=== PATIENT | male | born 1985 | race Native Hawaiian/Other Pacific Islander ===

== ENCOUNTER 2020-08-23 17:00 | Inpatient (IN) | payer SELFPAY ==
[2020-08-23] MEDS ORDERED: MORPHINE 2 MG/1 ML INJ IV ONE (17:33)
[2020-08-23] MEDS ORDERED: SODIUM CHLORIDE 0.9% 1000 ML 1,000 ML IV ONE (17:33)
[2020-08-23] MEDS ORDERED: ONDANSETRON 4 MG/2 ML INJ IV ONE ×2 (17:33→19:57)
--- NOTE | 2020-08-23 17:37 | Emergency Department Report ---
ED Abdominal Pain HPI - General Chief Complaint: Abdominal Pain Stated Complaint: ABD PAIN/UPPER ABD PAIN Time Seen by Provider: 08/23/20 17:28 Source: patient, EMS Mode of arrival: Stretcher Limitations: No Limitations - History of Present Illness Initial Comments: 34-year-old male, no past medical history, presents to ED with upper abdominal pain x2 hours. Patient reports he was driving in and then had onset of epigastric pain. Patient states he ate around 12 noon. He reports associated vomiting. Denies fever, diarrhea, radiation of pain. Patient denies any history of this in the past. He also denies alcohol use. MD Complaint: abdominal pain -: hour(s) (2) Location: epigastric Radiation: none Migration to: no migration Severity: severe Severity scale (0 -10): 10 Quality: aching Consistency: constant Improves With: nothing Worsens With: nothing Associated Symptoms: nausea, vomiting. denies: diarrhea, fever - Related Data Allergies Allergy/AdvReac Type Severity Reaction Status Date / Time No Known Allergies Allergy Verified 08/23/20 17:21 ED Review of Systems ROS: Stated complaint: ABD PAIN/UPPER ABD PAIN Other details as noted in HPI Comment: All other systems reviewed and negative Constitutional: denies: chills, fever Gastrointestinal: abdominal pain, nausea, vomiting. denies: diarrhea ED Past Medical Hx - Past Medical History Previous Medical History?: No - Surgical History Past Surgical History?: No - Social History Smoking Status: Never Smoker Substance Use Type: None ED Physical Exam - General Limitations: No Limitations General appearance: alert, other (Patient in obvious pain) - Head Head exam: Present: atraumatic, normocephalic - Eye Eye exam: Present: normal appearance, EOMI - ENT ENT exam: Present: mucous membranes moist - Neck Neck exam: Present: normal inspection - Respiratory Respiratory exam: Present: normal lung sounds bilaterally. Absent: respiratory distress - Cardiovascular Cardiovascular Exam: Present: regular rate, normal rhythm - GI/Abdominal GI/Abdominal exam: Present: soft, tenderness (Epigastric). Absent: distended - Extremities Exam Extremities exam: Present: normal inspection - Neurological Exam Neurological exam: Present: alert, oriented X3 - Psychiatric Psychiatric exam: Present: normal affect, normal mood - Skin Skin exam: Present: warm, dry, intact, normal color ED Course Vital Signs 08/23/20 08/23/20 08/23/20 17:24 17:56 18:00 Temperature 97.5 F L Pulse Rate 65 Respiratory 18 18 Rate Blood Pressure 127/82 Blood Pressure 108/67 [Left] O2 Sat by Pulse 95 100 Oximetry 08/23/20 08/23/20 08/23/20 18:30 18:46 19:10 Temperature Pulse Rate Respiratory Rate Blood Pressure 112/88 112/88 112/88 Blood Pressure [Left] O2 Sat by Pulse 97 98 98 Oximetry 08/23/20 08/23/20 08/23/20 20:01 20:16 20:30 Temperature Pulse Rate 67 Respiratory 18 Rate Blood Pressure 120/67 117/90 Blood Pressure 120/67 [Left] O2 Sat by Pulse 98 97 94 Oximetry 08/23/20 08/23/20 08/23/20 21:30 21:45 22:01 Temperature Pulse Rate Respiratory Rate Blood Pressure 114/65 114/65 140/93 Blood Pressure [Left] O2 Sat by Pulse 95 97 96 Oximetry 08/23/20 08/23/20 08/23/20 23:00 23:30 23:45 Temperature Pulse Rate Respiratory Rate Blood Pressure 127/80 144/85 127/80 Blood Pressure [Left] O2 Sat by Pulse 98 97 98 Oximetry 08/24/20 08/24/20 08/24/20 00:00 01:00 02:01 Temperature Pulse Rate Respiratory Rate Blood Pressure 121/71 131/88 123/78 Blood Pressure [Left] O2 Sat by Pulse 98 95 96 Oximetry 08/24/20 08/24/20 08/24/20 03:00 04:00 05:00 Temperature Pulse Rate Respiratory Rate Blood Pressure 125/77 136/87 136/84 Blood Pressure [Left] O2 Sat by Pulse 96 96 96 Oximetry 08/24/20 08/24/20 08/24/20 06:00 07:00 08:01 Temperature Pulse Rate Respiratory Rate Blood Pressure 133/86 134/89 137/89 Blood Pressure [Left] O2 Sat by Pulse 95 95 95 Oximetry 08/24/20 08/24/20 08/24/20 14:14 15:32 16:00 Temperature Pulse Rate 98 H Respiratory 18 18 Rate Blood Pressure 137/89 139/89 Blood Pressure [Left] O2 Sat by Pulse 95 Oximetry 08/24/20 08/24/20 08/24/20 17:00 18:00 20:00 Temperature Pulse Rate 102 H 104 H 107 H Respiratory 19 20 15 Rate Blood Pressure 137/96 135/95 132/88 Blood Pressure [Left] O2 Sat by Pulse 94 94 94 Oximetry 08/24/20 21:01 Temperature Pulse Rate 97 H Respiratory 20 Rate Blood Pressure 132/88 Blood Pressure [Left] O2 Sat by Pulse 94 Oximetry - Consultations Consultation #1: 08/23/20 19:54 Spoke with NICA Miramontes. States order MRCP for tomorrow. Make patient n.p.o. after midnight. Will consult on patient. ED Medical Decision Making - Lab Data Result diagrams: 08/24/20 04:23 08/24/20 04:23 - EKG Data -: EKG Interpreted by Me EKG shows normal: sinus rhythm, axis, intervals, QRS complexes, ST-T waves Rate: bradycardia (rate 55) - EKG Data Interpretation: no acute changes - Radiology Data Radiology results: report reviewed, image reviewed - Medical Decision Making 34-year-old male with acute abdominal pain and vomiting. Labs show findings consistent with acute pancreatitis, CT shows the same. Patient has possible choledocholithiasis, with dilated common bile duct. Spoke with GI, will see patient and obtain MRCP. Due to elevated WBCs, will cover with antibiotics. Patient is feeling much better at this time. Will admit to hospitalist, Dr. Bearden, for further management. - Differential Diagnosis Ruptured viscus, pancreatitis, gallstones, ACS Critical care attestation.: If time is entered above; I have spent that time in minutes in the direct care of this critically ill patient, excluding procedure time. ED Disposition Clinical Impression: Common bile duct dilatation Acute pancreatitis Qualifiers: Pancreatitis type: unspecified pancreatitis type Disposition: OP ADMIT IP TO THIS HOSP Is pt being admited?: Yes Condition: Stable Time of Disposition: 19:55
--- NOTE | 2020-08-23 18:09 | XRay Report ---
ABDOMEN 2 VIEW(S) with PA chest INDICATION / CLINICAL INFORMATION: abd pain. COMPARISON: None available. FINDINGS: Chest: The cardiomediastinal silhouette is unremarkable. The lungs are clear. There is no pleural eff usion. There is no pneumothorax. TUBES / LINES: None. BOWEL GAS PATTERN: No significant abnormality. FREE AIR / EXTRALUMINAL GAS: None seen. ADDITIONAL FINDINGS: No significant additional findings. IMPRESSION: 1. No significant abnormality. Signer Name: Jacqueline Rowell MD Signed: 08/23/2020 6:04 PM Workstation Name: [id number]
[2020-08-23 18:34] LABS: Hematocrit 49.7 % (35.5-45.6); Hemoglobin 17.6 gm/dl (11.8-15.2); INR 0.99 (0.87-1.13); Mean Corpuscular HGB Conc 35 % (32-34); Mean Corpuscular Volume 88 fl (84-94); Platelet Count 260 K/mm3 (140-440); Red Blood Count 5.62 M/mm3 (3.65-5.03); Red Cell Distribution Width 12.7 % (13.2-15.2)
[2020-08-23 18:35] LABS: Partial Thromboplastin Time 25.8 Sec. (24.2-36.6)
[2020-08-23 18:39] LABS: Alanine Aminotransferase 151 units/L (7-56); Albumin 4.8 g/dL (3.9-5); BUN/Creatinine Ratio 15; Bilirubin,Direct 0.9 mg/dL (0-0.2); Blood Urea Nitrogen 12 mg/dL (9-20); Calcium 9.4 mg/dL (8.4-10.2); Hemolysis Index 21
--- NOTE | 2020-08-23 19:37 | Cat Scan Report ---
CT abdomen pelvis w con INDICATION: epigastric pain. TECHNIQUE: All CT scans at this location are performed using the following dose modulation technique: Automated exposure control. Helical slices were obtained through the abdomen and pelvis. Intravenous contrast i s administered. COMPARISON: None available. FINDINGS: Abdomen: There is mild subsegmental atelectasis in the lung bases. Liver, spleen, adrenal glands, and kidneys show no acute abnormality. There is acute pancreatitis. There is peripancreatic fluid and there is fluid along the anterior para renal fascia on the right left. There is a small amount of fluid tracking up adjacent to the spleen. There is no evidence of pancreatic necrosis. The common bile duct is dilated measuring 1 cm. There is no bowel obstruction. There is no free air. The appendix is unremarkable. Pelvis: There is no obstruction or inflammation. There are no abnormal fluid collections. On review of bone windows, no acute osseous abnormalities are seen. IMPRESSION: 1. There is acute pancreatitis. There is inflammatory fluid noted around the pancreas and in along th e anterior pararenal fascia on the right and left small amount tracking up adjacent to the spleen. No walled off fluid collections are seen. No mass lesions are seen. 2. There is dilatation of the common bile duct which measures 1 cm. There is mild central intrahepati c biliary dilatation. Signer Name: Job Delacruz MD Signed: 08/23/2020 7:32 PM Workstation Name: [id number]
[2020-08-23] MEDS ORDERED: PIPERACIL/TAZOBACTA 4.5/NS 100 4.5 GM/100 ML VIAL IV ONE (19:53)
[2020-08-23] MEDS ORDERED: ALBUTEROL 2.5 MG/3 ML NEBU IH PRN (20:41)
[2020-08-23] MEDS ORDERED: HYDROmorphone 1 MG/1 ML INJ IV PRN (20:41)
[2020-08-23] MEDS ORDERED: ONDANSETRON 4 MG/2 ML INJ IV PRN (20:41)
[2020-08-23] MEDS ORDERED: ACETAMINOPHEN 325 MG TAB PO PRN (20:41)
[2020-08-23] MEDS ORDERED: SODIUM CHLORIDE 0.9% 1000 ML 2,000 ML IV ONE (20:43)
--- NOTE | 2020-08-23 20:44 | History and Physical Report ---
History of Present Illness Chief complaint: My stomach hurts History of present illness: 34 YO Female with no PMH presents to ED for evaluation. Patient states that she had experienced abdominal pain over the past 12 hours with persistently worsening symptoms over the past 2 hours. Patient states that pain is 10/10, constant, without exacerbating or alleviating factors, nonradiating, localized to the upper abdomen, associated with nausea, associated with multiple episodes of vomiting. EMS notified and upon arrival the patient was found to be in distress and subsequently transported to [facility] for further care and evaluation of the aforementioned symptoms. Patient seen and evaluated in the emergency department. Lab and imaging studies reviewed. Patient underwent CT scan of the abdomen and pelvis which revealed acute pancreatitis. Front End Specialist consulted in ED. Patient is pending endoscopic intervention. Patient denies fever, chills, chest pain, palpitations, productive cough, skin rash, recent ill contacts, ingestion of food/water from new or different sources, or known exposure to COVID-19. No prior admission for review. No medication listed at time of admission for reconciliation. Beatty's Score:1 at admission Past History Past Medical History: No medical history, other (Reviewed) Past Surgical History: No surgical history, Other (Reviewed) Social history: single Family history: no significant family history Medications and Allergies Allergies Allergy/AdvReac Type Severity Reaction Status Date / Time No Known Allergies Allergy Verified 08/23/20 17:21 Active Meds: Active Medications Acetaminophen (Tylenol) 650 mg PO Q4H PRN PRN Reason: Pain MILD(1-3)/Fever >100.5/MANTILLA Albuterol (Proventil) 2.5 mg IH Q4HRT PRN PRN Reason: Shortness Of Breath Hydromorphone HCl (Dilaudid) 0.5 mg IV Q3H PRN PRN Reason: Pain , Severe (7-10) Sodium Chloride (Nacl 0.9% 1000 Ml) 1,000 mls @ 125 mls/hr IV DIRECT RENE Morphine Sulfate (Morphine) 2 mg IV Q4H PRN PRN Reason: Pain, Moderate (4-6) Ondansetron HCl (Zofran) 4 mg IV Q8H PRN PRN Reason: Nausea And Vomiting Sodium Chloride (Sodium Chloride Flush Syringe 10 Ml) 10 ml IV BID RENE Sodium Chloride (Sodium Chloride Flush Syringe 10 Ml) 10 ml IV PRN PRN PRN Reason: LINE FLUSH Review of Systems Constitutional: no weight loss, no weight gain, no fever, no chills, no fatigue, no malaise, no lethargy Ears, nose, mouth and throat: no ear pain, no ear discharge, no decreased hearing, no nasal discharge Cardiovascular: no chest pain, no orthopnea, no rapid/irregular heart beat, no edema, no syncope Respiratory: no excessive sputum, no shortness of breath, no dyspnea on exertion Gastrointestinal: abdominal pain, nausea, vomiting, no diarrhea, no constipation, no change in bowel habits, no hematochezia, no loss of appetite Genitourinary Male: no hematuria, no flank pain, no nocturia Rectal: no pain, no incontinence, no bleeding Musculoskeletal: no neck pain, no shooting arm pain Integumentary: no rash, no pruritis, no redness, no sores, no wounds, no jaundice Neurological: no head injury, no transient paralysis, no paralysis, no weakness, no numbness, no tingling, no syncope, no tremors Psychiatric: no anxiety, no memory loss, no sleep disturbances, no insomnia, no change in appetite Endocrine: no cold intolerance, no excessive thirst, no polyuria Hematologic/Lymphatic: no easy bruising, no lymphadenopathy Allergic/Immunologic: no urticaria, no persistent infections, no angioedema Exam - Constitutional Vitals: Temp Pulse Resp BP Pulse Ox 97.5 F L 67 18 120/67 98 08/23/20 17:24 08/23/20 20:01 08/23/20 20:01 08/23/20 20:01 08/23/20 20:01 General appearance: Present: mild distress - EENT Eyes: Present: PERRL ENT: hearing intact, clear oral mucosa - Neck Neck: Present: supple, normal ROM - Respiratory Respiratory effort: normal Respiratory: bilateral: CTA - Cardiovascular Heart Sounds: Present: S1 & S2. Absent: rub, click - Extremities Extremities: pulses symmetrical, No edema Peripheral Pulses: within normal limits - Abdominal General gastrointestinal: Present: soft, tender, non-distended, normal bowel sounds Localized gastrointestinal: tender: diffuse Male genitourinary: Present: normal - Integumentary Integumentary: Present: clear, warm, dry - Musculoskeletal Musculoskeletal: gait normal, strength equal bilaterally - Psychiatric Psychiatric: appropriate mood/affect, intact judgment & insight - Neurologic Neurologic: CNII-XII intact, moves all extremities HEART Score - HEART Score Troponin: Troponin T < 0.010 ng/mL (0.00-0.029) 08/23/20 18:02 Results - Labs CBC & Chem 7: 08/23/20 18:02 08/23/20 18:02 Labs: Abnormal lab results 08/23/20 08/23/20 Range/Units 18:02 18:02 WBC 19.3 H (4.5-11.0) K/mm3 RBC 5.62 H (3.65-5.03) M/mm3 Hgb 17.6 H (11.8-15.2) gm/dl Hct 49.7 H (35.5-45.6) % MCHC 35 H (32-34) % RDW 12.7 L (13.2-15.2) % Potassium 3.5 L (3.6-5.0) mmol/L Glucose 165 H (75-100) mg/dL Total Bilirubin 1.60 H (0.1-1.2) mg/dL Direct Bilirubin 0.9 H (0-0.2) mg/dL AST 143 H (5-40) units/L ALT 151 H (7-56) units/L Lipase 2656 H (13-60) units/L Assessment and Plan - Patient Problems (1) Systemic inflammatory response syndrome Current Visit: Yes Status: Acute Plan to address problem: CBC, CMP, IV fluid resuscitation therapy, no source of infection localized at this time. Repeat CBC in a.m. Suspected secondary to acute pancreatitis. (2) Acute pancreatitis Current Visit: Yes Status: Acute Qualifiers: Pancreatitis type: unspecified pancreatitis type Plan to address problem: CBC, CMP, LDH level, IV fluid resuscitation therapy, bowel rest, pain control, gastroenterology team consulted in ED. (3) Common bile duct dilatation Current Visit: Yes Status: Acute Plan to address problem: Gastroenterology team consulted in ED, pending endoscopic evaluation as per GI team. (4) DVT prophylaxis Current Visit: Yes Status: Acute Plan to address problem: SCDs bilateral lower extremities while in bed, patient is ambulatory
[2020-08-23] MEDS ORDERED: SODIUM CHLORIDE 0.9% 1000 ML 1,000 ML ONE (22:31)
[2020-08-23] MEDS ORDERED: PROMETHAZINE 12.5 MG RECT SUPP PR PRN (23:14)
[2020-08-23] MEDS ORDERED: MORPHINE 2 MG/1 ML INJ ONE (23:18)
[2020-08-23] MEDS ORDERED: PROMETHAZINE 12.5 MG RECT SUPP PR ONE (23:19)
[2020-08-23] MEDS: MORPHINE 2 MG/1 ML INJ IV PRN (23:29)
[2020-08-24 05:25] LABS: Hemoglobin 17.1 gm/dl (11.8-15.2); Mean Corpuscular HGB Conc 35 % (32-34); Mean Corpuscular Volume 88 fl (84-94); Platelet Count 270 K/mm3 (140-440); Red Blood Count 5.57 M/mm3 (3.65-5.03); Red Cell Distribution Width 13.1 % (13.2-15.2)
[2020-08-24 05:30] LABS: Alanine Aminotransferase 127 units/L (7-56); Albumin 4.4 g/dL (3.9-5); Blood Urea Nitrogen 9 mg/dL (9-20); Calcium 8.8 mg/dL (8.4-10.2); Hemolysis Index 6
[2020-08-24 05:35] LABS: BUN/Creatinine Ratio 13
[2020-08-24 06:49] LABS: Basophils % (Manual) 0 % (0.0-1.8); Eosinophils % (Manual) 0 % (0.0-4.3); Total Cells Counted 100
[2020-08-24 06:50] LABS: Platelet Estimate Consistent w Auto
--- NOTE | 2020-08-24 09:22 | Magnetic Resonance Report ---
MR abdomen MRCP INDICATION / CLINICAL INFORMATION: dilated CBD; abd pain. TECHNIQUE: Multiplanar, multisequence MR images of the abdomen were obtained per MRCP protocol. COMPARISON: CT abdomen and pelvis with contrast dated 08/23/2020 FINDINGS: Liver: Liver appears within normal limits. Gallbladder: The gallbladder is distended. Multiple large filling defects are noted layering near the gallbladder neck measuring 2.7 cm, 1.1 cm, and 0.7 cm respectively. No evidence of gall bladder wall thickening or pericolic cystic fluid. Biliary ducts: Mild intrahepatic ductal dilatation is noted without evidence of intraluminal filling defects. The cystic duct is minimally tortuous without evidence of intraluminal filling defects. Comm on bile duct is dilated measuring 1.1 cm at its greatest diameter with a distal 0.6 cm filling defect near the ampulla of Vater (series 7 image 19). Pancreas: Findings of acute pancreatitis are relatively unchanged since prior CT. No evidence of panc reatic necrosis. No peripancreatic disorganized free fluid within the peritoneum is similar. No evide nce of pancreatic duct dilatation. Other: No significant abnormality identified within the spleen, kidneys, or adrenal glands. IMPRESSION: 1. Cholelithiasis and choledocholithiasis with a 0.6 cm gallstone located at the ampulla of Vater and associated intra and extrahepatic biliary ductal dilatation. No evidence of gallstones within the cy stic duct or acute cholecystitis. 2. Previously noted findings of acute pancreatitis and disorganized free fluid are unchanged from leanne or exam. Signer Name: Greg Howe MD Signed: 08/24/2020 9:18 AM Workstation Name: [id number]
[2020-08-24] MEDS ORDERED: HYDROmorphone 1 MG/1 ML INJ ONE (14:08)
[2020-08-24] MEDS ORDERED: LORazepam 2 MG/ML VIAL ONE (14:09)
--- NOTE | 2020-08-24 14:58 | Gastroenterology Consultation ---
History of Present Illness - Reason for Consult Consult date: 08/24/20 Gallstones Requesting physician: OBDULIA LEWIS - History of Present Illness The patient is a 34 yo male with no prior GI history, who was admitted with pancreatitis. He has no hx of this, nor hepatitis. A CT saw, and MRCP confirmed, a small stone in the distal CBD. He says the pain in the epigastric region is better after admit, and his labs are improved without fever. There is a family hx of gallstones in his mother. He denies CP or SOB, and has no hx of active cardiopulmonary disease. Past History Past Medical History: No medical history Past Surgical History: No surgical history Social history: single. denies: smoking, alcohol abuse Family history: other (Gallstones, mother) Medications and Allergies Allergies Allergy/AdvReac Type Severity Reaction Status Date / Time No Known Allergies Allergy Verified 08/23/20 17:21 Active Meds: Active Medications Acetaminophen (Tylenol) 650 mg PO Q4H PRN PRN Reason: Pain MILD(1-3)/Fever >100.5/MANTILLA Albuterol (Proventil) 2.5 mg IH Q4HRT PRN PRN Reason: Shortness Of Breath Hydromorphone HCl (Dilaudid) 0.5 mg IV Q3H PRN PRN Reason: Pain , Severe (7-10) Last Admin: 08/24/20 14:14 Dose: 0.5 mg Documented by: Sodium Chloride (Nacl 0.9% 1000 Ml) 1,000 mls @ 125 mls/hr IV DIRECT RENE Morphine Sulfate (Morphine) 2 mg IV Q4H PRN PRN Reason: Pain, Moderate (4-6) Last Admin: 08/23/20 23:29 Dose: 2 mg Documented by: Ondansetron HCl (Zofran) 4 mg IV Q8H PRN PRN Reason: Nausea And Vomiting Promethazine HCl (Phenergan) 12.5 mg IL Q6H PRN PRN Reason: Nausea And Vomiting Last Admin: 08/23/20 23:29 Dose: 12.5 mg Documented by: Sodium Chloride (Sodium Chloride Flush Syringe 10 Ml) 10 ml IV BID RENE Last Admin: 08/24/20 10:21 Dose: 10 ml Documented by: Sodium Chloride (Sodium Chloride Flush Syringe 10 Ml) 10 ml IV PRN PRN PRN Reason: LINE FLUSH REVIEWED AND RECONCILED Review of Systems - Review of Systems All systems: negative (as noted in the HPI.) Exam - Constitutional Vital Signs: Temp Pulse Resp BP Pulse Ox 97.5 F L 67 18 137/89 95 08/23/20 17:24 08/23/20 20:01 08/24/20 14:14 08/24/20 08:01 08/24/20 08:01 General appearance: no acute distress - EENT Eyes: PERRL, EOM intact ENT: hearing intact, clear oral mucosa, no thrush - Neck Neck: supple, normal ROM - Respiratory Respiratory effort: normal Respiratory: bilateral: CTA - Cardiovascular Rhythm: regular Heart Sounds: Present: S1 & S2 Extremities: no ischemia, No edema - Gastrointestinal General gastrointestinal: Present: soft, tender (Minimal epigastric tenderness), non-distended - Integumentary Integumentary: Present: clear, warm, dry - Neurologic Neurological: alert and oriented x3 - Labs CBC & Chem 7: 08/24/20 04:23 08/24/20 04:23 Lab Results: Laboratory Results - last 24 hr 08/23/20 08/23/20 08/23/20 18:02 18:02 18:02 WBC 19.3 H RBC 5.62 H Hgb 17.6 H Hct 49.7 H MCV 88 MCH 31 MCHC 35 H RDW 12.7 L Plt Count 260 Lymph % (Auto) Evaluation Assistant Ware % (Auto) Evaluation Assistant Eos % (Auto) Evaluation Assistant Baso % (Auto) Evaluation Assistant Lymph # (Auto) Evaluation Assistant Ware # (Auto) Evaluation Assistant Eos # (Auto) Evaluation Assistant Baso # (Auto) Evaluation Assistant Add Manual Diff Total Counted Seg Neutrophils % Evaluation Assistant Seg Neuts % (Manual) Band Neutrophils % Lymphocytes % (Manual) Reactive Lymphs % (Man) Monocytes % (Manual) Eosinophils % (Manual) Basophils % (Manual) Metamyelocytes % Myelocytes % Promyelocytes % Blast Cells % Nucleated RBC % Seg Neutrophils # Evaluation Assistant Seg Neutrophils # Man Band Neutrophils # Lymphocytes # (Manual) Abs React Lymphs (Man) Monocytes # (Manual) Eosinophils # (Manual) Basophils # (Manual) Metamyelocytes # Myelocytes # Promyelocytes # Blast Cells # WBC Morphology Hypersegmented Neuts Hyposegmented Neuts Hypogranular Neuts Smudge Cells Toxic Granulation Toxic Vacuolation Dohle Bodies Pelger-Huet Anomaly Giovana Rods Platelet Estimate Clumped Platelets Plt Clumps, EDTA Large Platelets Giant Platelets Platelet Satelliting Plt Morphology Comment RBC Morphology Dimorphic RBCs Polychromasia Hypochromasia Poikilocytosis Anisocytosis Microcytosis Macrocytosis Spherocytes Pappenheimer Bodies Sickle Cells Target Cells Tear Drop Cells Ovalocytes Helmet Cells [place] Bodies [place] Rings Sor[place] Cells Bite Cells Crenated Cell Elliptocytes Acanthocytes (Spur) Rouleaux Hemoglobin C Crystals Schistocytes Malaria parasites Fletcher Bodies Hem Pathologist Commnt PT 13.3 INR 0.99 APTT 25.8 Sodium 140 Potassium 3.5 L Chloride 102.8 Carbon Dioxide 23 Anion Gap 18 BUN 12 Creatinine 0.8 Estimated GFR > 60 BUN/Creatinine Ratio 15 Glucose 165 H Calcium 9.4 Total Bilirubin 1.60 H Direct Bilirubin 0.9 H Indirect Bilirubin 0.7 AST 143 H ALT 151 H Alkaline Phosphatase 123 Lactate Dehydrogenase Troponin T Total Protein 7.9 Albumin 4.8 Albumin/Globulin Ratio 1.5 Lipase 2656 H 08/23/20 08/23/20 08/24/20 18:02 Unknown 04:23 WBC 15.2 H RBC 5.57 H Hgb 17.1 H Hct 49.0 H MCV 88 MCH 31 MCHC 35 H RDW 13.1 L Plt Count 270 Lymph % (Auto) Ware % (Auto) Eos % (Auto) Baso % (Auto) Lymph # (Auto) Ware # (Auto) Eos # (Auto) Baso # (Auto) Add Manual Diff Complete Total Counted 100 Seg Neutrophils % Evaluation Assistant Seg Neuts % (Manual) 91.0 H Band Neutrophils % 0 Lymphocytes % (Manual) 4.0 L Reactive Lymphs % (Man) 0 Monocytes % (Manual) 5.0 Eosinophils % (Manual) 0 Basophils % (Manual) 0 Metamyelocytes % 0 Myelocytes % 0 Promyelocytes % 0 Blast Cells % 0 Nucleated RBC % Not Reportable Seg Neutrophils # Seg Neutrophils # Man 13.8 H Band Neutrophils # 0.0 Lymphocytes # (Manual) 0.6 L Abs React Lymphs (Man) 0.0 Monocytes # (Manual) 0.8 Eosinophils # (Manual) 0.0 Basophils # (Manual) 0.0 Metamyelocytes # 0.0 Myelocytes # 0.0 Promyelocytes # 0.0 Blast Cells # 0.0 WBC Morphology Not Reportable Hypersegmented Neuts Not Reportable Hyposegmented Neuts Not Reportable Hypogranular Neuts Not Reportable Smudge Cells Not Reportable Toxic Granulation Not Reportable Toxic Vacuolation Not Reportable Dohle Bodies Not Reportable Pelger-Huet Anomaly Not Reportable Giovana Rods Not Reportable Platelet Estimate Consistent w auto Clumped Platelets Not Reportable Plt Clumps, EDTA Not Reportable Large Platelets Not Reportable Giant Platelets Not Reportable Platelet Satelliting Not Reportable Plt Morphology Comment Not Reportable RBC Morphology Not Reportable Dimorphic RBCs Not Reportable Polychromasia Not Reportable Hypochromasia Not Reportable Poikilocytosis Not Reportable Anisocytosis Not Reportable Microcytosis Not Reportable Macrocytosis Not Reportable Spherocytes Not Reportable Pappenheimer Bodies Not Reportable Sickle Cells Not Reportable Target Cells Not Reportable Tear Drop Cells Not Reportable Ovalocytes Not Reportable Helmet Cells Not Reportable [place] Bodies Not Reportable [place] Rings Not Reportable [place] Cells Not Reportable Bite Cells Not Reportable Crenated Cell Not Reportable Elliptocytes Not Reportable Acanthocytes (Spur) Not Reportable Rouleaux Not Reportable Hemoglobin C Crystals Not Reportable Schistocytes Not Reportable Malaria parasites Not Reportable Fletcher Bodies Not Reportable Hem Pathologist Commnt No PT INR APTT Sodium Potassium Chloride Carbon Dioxide Anion Gap BUN Creatinine Estimated GFR BUN/Creatinine Ratio Glucose Calcium Total Bilirubin Direct Bilirubin Indirect Bilirubin AST ALT Alkaline Phosphatase Lactate Dehydrogenase 308 H Troponin T < 0.010 Total Protein Albumin Albumin/Globulin Ratio Lipase 08/24/20 08/24/20 04:23 04:23 WBC RBC Hgb Hct MCV MCH MCHC RDW Plt Count Lymph % (Auto) Ware % (Auto) Eos % (Auto) Baso % (Auto) Lymph # (Auto) Ware # (Auto) Eos # (Auto) Baso # (Auto) Add Manual Diff Total Counted Seg Neutrophils % Seg Neuts % (Manual) Band Neutrophils % Lymphocytes % (Manual) Reactive Lymphs % (Man) Monocytes % (Manual) Eosinophils % (Manual) Basophils % (Manual) Metamyelocytes % Myelocytes % Promyelocytes % Blast Cells % Nucleated RBC % Seg Neutrophils # Seg Neutrophils # Man Band Neutrophils # Lymphocytes # (Manual) Abs React Lymphs (Man) Monocytes # (Manual) Eosinophils # (Manual) Basophils # (Manual) Metamyelocytes # Myelocytes # Promyelocytes # Blast Cells # WBC Morphology Hypersegmented Neuts Hyposegmented Neuts Hypogranular Neuts Smudge Cells Toxic Granulation Toxic Vacuolation Dohle Bodies Pelger-Huet Anomaly Giovana Rods Platelet Estimate Clumped Platelets Plt Clumps, EDTA Large Platelets Giant Platelets Platelet Satelliting Plt Morphology Comment RBC Morphology Dimorphic RBCs Polychromasia Hypochromasia Poikilocytosis Anisocytosis Microcytosis Macrocytosis Spherocytes Pappenheimer Bodies Sickle Cells Target Cells Tear Drop Cells Ovalocytes Helmet Cells [place] Bodies [place] Rings [place] Cells Bite Cells Crenated Cell Elliptocytes Acanthocytes (Spur) Rouleaux Hemoglobin C Crystals Schistocytes Malaria parasites Fletcher Bodies Hem Pathologist Commnt PT INR APTT Sodium 141 Potassium 3.7 Chloride 106.8 Carbon Dioxide 23 Anion Gap 15 BUN 9 Creatinine 0.7 L Estimated GFR > 60 BUN/Creatinine Ratio 13 Glucose 203 H Calcium 8.8 Total Bilirubin 1.10 Direct Bilirubin Indirect Bilirubin AST 51 H ALT 127 H Alkaline Phosphatase 106 Lactate Dehydrogenase Troponin T Total Protein 7.3 Albumin 4.4 Albumin/Globulin Ratio 1.5 Lipase 875 H Assessment and Plan - Patient Problems (1) Gallstone pancreatitis Current Visit: Yes Status: Acute Plan to address problem: - WBC and LFTs improved, but MRCP confirms residual small stone(s). - Will plan ERCP tomorrow. - Given elevated WBC, will give abx. - Continue aggressive IV hydration.
--- NOTE | 2020-08-24 20:00 | Progress Note ---
Assessment and Plan - Patient Problems (1) Systemic inflammatory response syndrome Current Visit: Yes Status: Acute Plan to address problem: CBC, CMP, IV fluid resuscitation therapy, no source of infection localized at this time. Repeat CBC in a.m. Suspected secondary to acute pancreatitis. (2) Acute pancreatitis Current Visit: Yes Status: Acute Qualifiers: Pancreatitis type: unspecified pancreatitis type Plan to address problem: CBC, CMP, LDH level, IV fluid resuscitation therapy, bowel rest, pain control, gastroenterology team consulted in ED. (3) Common bile duct dilatation Current Visit: Yes Status: Acute Plan to address problem: Gastroenterology team consulted in ED, pending endoscopic evaluation as per GI team. (4) DVT prophylaxis Current Visit: Yes Status: Acute Plan to address problem: SCDs bilateral lower extremities while in bed, patient is ambulatory History Interval history: 34 YO Female HD #2 with Acute Pancreatitis. Pt resting comfortable in bed, No reported nursing events. Patient resting comfortably. Patient denies pain. Patient states that symptoms have improved since admission. Hospitalist Physical - Constitutional Vitals: Temp Pulse Resp BP Pulse Ox 97.5 F L 102 H 19 137/96 94 08/23/20 17:24 08/24/20 17:00 08/24/20 17:00 08/24/20 17:00 08/24/20 17:00 General appearance: Present: mild distress - EENT Eyes: Present: PERRL, EOM intact ENT: hearing intact - Neck Neck: Present: supple - Respiratory Respiratory effort: normal Respiratory: bilateral: CTA - Cardiovascular Rhythm: regular Heart Sounds: Present: S1 & S2 - Extremities Extremities: no ischemia Peripheral Pulses: within normal limits - Abdominal General gastrointestinal: soft, non-tender, non-distended - Integumentary Integumentary: Present: clear, warm, dry - Psychiatric Psychiatric: appropriate mood/affect, cooperative - Neurologic Neurologic: CNII-XII intact HEART Score - HEART Score Troponin: Troponin T < 0.010 ng/mL (0.00-0.029) 08/23/20 18:02 Results - Labs CBC & Chem 7: 08/24/20 04:23 08/24/20 04:23 Labs: Laboratory Last Values WBC 15.2 K/mm3 (4.5-11.0) H 08/24/20 04:23 RBC 5.57 M/mm3 (3.65-5.03) H 08/24/20 04:23 Hgb 17.1 gm/dl (11.8-15.2) H 08/24/20 04:23 Hct 49.0 % (35.5-45.6) H 08/24/20 04:23 MCV 88 fl (84-94) 08/24/20 04:23 MCH 31 pg (28-32) 08/24/20 04:23 MCHC 35 % (32-34) H 08/24/20 04:23 RDW 13.1 % (13.2-15.2) L 08/24/20 04:23 Plt Count 270 K/mm3 (140-440) 08/24/20 04:23 Lymph % (Auto) Veneer Joiner 08/23/20 18:02 [place] % (Auto) Veneer Joiner 08/23/20 18:02 Eos % (Auto) Veneer Joiner 08/23/20 18:02 Baso % (Auto) Veneer Joiner 08/23/20 18:02 Lymph # (Auto) Veneer Joiner 08/23/20 18:02 [place] # (Auto) Veneer Joiner 08/23/20 18:02 Eos # (Auto) Veneer Joiner 08/23/20 18:02 Baso # (Auto) Veneer Joiner 08/23/20 18:02 Add Manual Diff Complete 08/24/20 04:23 Total Counted 100 08/24/20 04:23 Seg Neutrophils % Veneer Joiner 08/24/20 04:23 Seg Neuts % (Manual) 91.0 % (40.0-70.0) H 08/24/20 04:23 Band Neutrophils % 0 % 08/24/20 04:23 Lymphocytes % (Manual) 4.0 % (13.4-35.0) L 08/24/20 04:23 Reactive Lymphs % (Man) 0 % 08/24/20 04:23 Monocytes % (Manual) 5.0 % (0.0-7.3) 08/24/20 04:23 Eosinophils % (Manual) 0 % (0.0-4.3) 08/24/20 04:23 Basophils % (Manual) 0 % (0.0-1.8) 08/24/20 04:23 Metamyelocytes % 0 % 08/24/20 04:23 Myelocytes % 0 % 08/24/20 04:23 Promyelocytes % 0 % 08/24/20 04:23 Blast Cells % 0 % 08/24/20 04:23 Nucleated RBC % Not Reportable 08/24/20 04:23 Seg Neutrophils # Veneer Joiner 08/23/20 18:02 Seg Neutrophils # Man 13.8 K/mm3 (1.8-7.7) H 08/24/20 04:23 Band Neutrophils # 0.0 K/mm3 08/24/20 04:23 Lymphocytes # (Manual) 0.6 K/mm3 (1.2-5.4) L 08/24/20 04:23 Abs React Lymphs (Man) 0.0 K/mm3 08/24/20 04:23 Monocytes # (Manual) 0.8 K/mm3 (0.0-0.8) 08/24/20 04:23 Eosinophils # (Manual) 0.0 K/mm3 (0.0-0.4) 08/24/20 04:23 Basophils # (Manual) 0.0 K/mm3 (0.0-0.1) 08/24/20 04:23 Metamyelocytes # 0.0 K/mm3 08/24/20 04:23 Myelocytes # 0.0 K/mm3 08/24/20 04:23 Promyelocytes # 0.0 K/mm3 08/24/20 04:23 Blast Cells # 0.0 K/mm3 08/24/20 04:23 WBC Morphology Not Reportable 08/24/20 04:23 Hypersegmented Neuts Not Reportable 08/24/20 04:23 Hyposegmented Neuts Not Reportable 08/24/20 04:23 Hypogranular Neuts Not Reportable 08/24/20 04:23 Smudge Cells Not Reportable 08/24/20 04:23 Toxic Granulation Not Reportable 08/24/20 04:23 Toxic Vacuolation Not Reportable 08/24/20 04:23 Dohle Bodies Not Reportable 08/24/20 04:23 Pelger-Huet Anomaly Not Reportable 08/24/20 04:23 Giovana Rods Not Reportable 08/24/20 04:23 Platelet Estimate Consistent w auto 08/24/20 04:23 Clumped Platelets Not Reportable 08/24/20 04:23 Plt Clumps, EDTA Not Reportable 08/24/20 04:23 Large Platelets Not Reportable 08/24/20 04:23 Giant Platelets Not Reportable 08/24/20 04:23 Platelet Satelliting Not Reportable 08/24/20 04:23 Plt Morphology Comment Not Reportable 08/24/20 04:23 RBC Morphology Not Reportable 08/24/20 04:23 Dimorphic RBCs Not Reportable 08/24/20 04:23 Polychromasia Not Reportable 08/24/20 04:23 Hypochromasia Not Reportable 08/24/20 04:23 Poikilocytosis Not Reportable 08/24/20 04:23 Anisocytosis Not Reportable 08/24/20 04:23 Microcytosis Not Reportable 08/24/20 04:23 Macrocytosis Not Reportable 08/24/20 04:23 Spherocytes Not Reportable 08/24/20 04:23 Pappenheimer Bodies Not Reportable 08/24/20 04:23 Sickle Cells Not Reportable 08/24/20 04:23 Target Cells Not Reportable 08/24/20 04:23 Tear Drop Cells Not Reportable 08/24/20 04:23 Ovalocytes Not Reportable 08/24/20 04:23 Helmet Cells Not Reportable 08/24/20 04:23 [place] Bodies Not Reportable 08/24/20 04:23 [place] Rings Not Reportable 08/24/20 04:23 [place] Cells Not Reportable 08/24/20 04:23 Bite Cells Not Reportable 08/24/20 04:23 Crenated Cell Not Reportable 08/24/20 04:23 Elliptocytes Not Reportable 08/24/20 04:23 Acanthocytes (Spur) Not Reportable 08/24/20 04:23 Rouleaux Not Reportable 08/24/20 04:23 Hemoglobin C Crystals Not Reportable 08/24/20 04:23 Schistocytes Not Reportable 08/24/20 04:23 Malaria parasites Not Reportable 08/24/20 04:23 Fletcher Bodies Not Reportable 08/24/20 04:23 Hem Pathologist Commnt No 08/24/20 04:23 PT 13.3 Sec. (12.2-14.9) 08/23/20 18:02 INR 0.99 (0.87-1.13) 08/23/20 18:02 APTT 25.8 Sec. (24.2-36.6) 08/23/20 18:02 Sodium 141 mmol/L (137-145) 08/24/20 04:23 Potassium 3.7 mmol/L (3.6-5.0) 08/24/20 04:23 Chloride 106.8 mmol/L (98-107) 08/24/20 04:23 Carbon Dioxide 23 mmol/L (22-30) 08/24/20 04:23 Anion Gap 15 mmol/L 08/24/20 04:23 BUN 9 mg/dL (9-20) 08/24/20 04:23 Creatinine 0.7 mg/dL (0.8-1.3) L 08/24/20 04:23 Estimated GFR > 60 ml/min 08/24/20 04:23 BUN/Creatinine Ratio 13 % 08/24/20 04:23 Glucose 203 mg/dL (75-100) H 08/24/20 04:23 Calcium 8.8 mg/dL (8.4-10.2) 08/24/20 04:23 Total Bilirubin 1.10 mg/dL (0.1-1.2) 08/24/20 04:23 Direct Bilirubin 0.9 mg/dL (0-0.2) H 08/23/20 18:02 Indirect Bilirubin 0.7 mg/dL 08/23/20 18:02 AST 51 units/L (5-40) H 08/24/20 04:23 ALT 127 units/L (7-56) H 08/24/20 04:23 Alkaline Phosphatase 106 units/L (35-129) 08/24/20 04:23 Lactate Dehydrogenase 308 units/L (91-180) H 08/23/20 Unknown Troponin T < 0.010 ng/mL (0.00-0.029) 08/23/20 18:02 Total Protein 7.3 g/dL (6.3-8.2) 08/24/20 04:23 Albumin 4.4 g/dL (3.9-5) 08/24/20 04:23 Albumin/Globulin Ratio 1.5 % 08/24/20 04:23 Lipase 875 units/L (13-60) H 08/24/20 04:23 Crow/IV: IV Catheter Type [Right INT / Saline Lock Antecubital] Active Medications - Current Medications Current Medications: Generic Name Dose Route Start Last Admin Trade Name Freq PRN Reason Stop Dose Admin Acetaminophen 650 mg 08/23/20 20:41 Tylenol PO Q4H PRN Pain MILD(1-3)/Fever >100.5/MANTILLA Albuterol 2.5 mg 08/23/20 20:41 Proventil IH Q4HRT PRN Shortness Of Breath Hydromorphone HCl 0.5 mg 08/23/20 20:41 08/24/20 14:14 Dilaudid IV 0.5 mg Q3H PRN Administration Pain , Severe (7-10) Sodium Chloride 1,000 mls @ 125 mls/hr 08/23/20 20:45 Nacl 0.9% 1000 Ml IV DIRECT RENE Morphine Sulfate 2 mg 08/23/20 20:41 08/23/20 23:29 Morphine IV 2 mg Q4H PRN Administration Pain, Moderate (4-6) Ondansetron HCl 4 mg 08/23/20 20:41 Zofran IV Q8H PRN Nausea And Vomiting Promethazine HCl 12.5 mg 08/23/20 23:14 08/23/20 23:29 Phenergan DE 12.5 mg Q6H PRN Administration Nausea And Vomiting Sodium Chloride 10 ml 08/23/20 22:00 08/24/20 10:21 Sodium Chloride Flush Syringe 10 Ml IV 10 ml BID RENE Administration Sodium Chloride 10 ml 08/23/20 20:41 Sodium Chloride Flush Syringe 10 Ml IV PRN PRN LINE FLUSH
[2020-08-25] MEDS ORDERED: SODIUM CHLORIDE 0.9% 1000 ML 1,000 ML ONE ×2 (08:41→12:33)
--- NOTE | 2020-08-25 08:58 | Anesthesia Day of Surgery ---
Anesthesia Day of Surgery - Day of Surgery Patient Examined: Yes Patient H&P Reviewed: Yes Patient is NPO: Yes
--- NOTE | 2020-08-25 08:59 | Anesthesia Consultation ---
Anesthesia Consult and Med Hx Date of service: 08/25/20 - Airway Anesthetic Teeth Evaluation: Good ROM Head & Neck: Adequate Mental/Hyoid Distance: Adequate Mallampati Class: Class III Intubation Access Assessment: Probably Good - Pre-Operative Health Status ASA Pre-Surgery Classification: ASA2 Proposed Anesthetic Plan: General, MAC - Other Systems Hx Alcohol Use: Yes - Additional Comments Anesthesia Medical History Comments: [place] speaking only. Acute pancreatitis with elevated LFTs
[2020-08-25] MEDS: SODIUM CHLORIDE 0.9% 1000 ML 1,000 ML IV SCH ×2 (09:22→15:34)
[2020-08-25] MEDS ORDERED: SODIUM CHLORIDE 0.9% 100 ML ONE (09:57)
[2020-08-25] MEDS ORDERED: MIDAZOLAM 2 MG/2 ML INJ ONE (11:33)
[2020-08-25] MEDS ORDERED: propofoL 200 MG/20 ML VIAL IV ONE (11:33)
[2020-08-25] MEDS ORDERED: fentaNYL 100 MCG/2 ML INJ ONE (11:34)
[2020-08-25] MEDS ORDERED: ONDANSETRON 4 MG/2 ML INJ ONE (12:17)
--- NOTE | 2020-08-25 12:22 | Post Operative Note ---
Pre-op diagnosis: Gallstone Post-op diagnosis: same Findings: Sludge in CBD Procedure: ERCP with biliary sphicterotomy and balloon sweep of CBD Anesthesia: MAC Surgeon: SHAKEEL SHERWOOD Estimated blood loss: minimal Pathology: none Specimen disposition: other (N/A) Condition: stable Disposition: floor (Recs: 1. Surgical consult for cholecystectomy. 2. Protonix QD given sphincterotomy. 3. May have clears today. 4. Monitor labs, but if improved, may d/c abx on discharge. 5. No NSAIDs x 3 days.)
--- NOTE | 2020-08-25 12:38 | Operative Report ---
ENDOSCOPY PROCEDURE PERFORMED: Endoscopic retrograde cholangiopancreatography with biliary sphincterotomy and balloon sweeping of the common bile duct. PREOPERATIVE DIAGNOSIS: Choledocholithiasis. POSTOPERATIVE DIAGNOSIS: Choledocholithiasis. ENDOSCOPIST: Jack Rogers MD INSTRUMENT: Olympus video endoscope. MEDICATIONS: MAC anesthesia by Anesthesia Service. COMPLICATIONS: No apparent complications. ESTIMATED BLOOD LOSS: Minimal. SPECIMENS: None. IMPLANTS: None. ASSISTANTS: None. CONDITION AT COMPLETION: Stable. TECHNIQUE: The patient was informed of the risks and benefits of the procedure. He signed the informed consent to proceed. He was placed in the prone position. The above sedative medications were given. His vital signs remained stable throughout the procedure. The instrument was advanced from the mouth to the ampulla under direct visualization. At that point, the bowel was insufflated. The ampulla was normal in shape and size. We did not cannulate the pancreatic duct. The common bile duct was cannulated using a Fusion sphincterotome and a 0.035 guidewire. Cholangiogram showed minimal dilation to approximately 7 mm with a possible filling defect in the distalmost portion. A medium sized sphincterotomy was performed and a 12-mm balloon was swept twice through the common hepatic and common bile duct. A moderate amount of biliary sludge was removed, but there was no significant remaining gallstone in the common bile duct, presumably this had passed. At that point, the procedure was terminated. FINDINGS: 1. Normal appearing ampulla. 2. Pancreatic duct not cannulated or injected. 3. Note incidentally made of filling of the cystic duct and the gallbladder during the procedure, with gallstones visualized. 4. Common bile duct cannulated using a Fusion sphincterotome and a 0.035 guidewire. A. Common bile duct dilated minimally to 7 mm with distal filling defect. B. Medium sized sphincterotomy performed. C. A 12-mm balloon swept twice through the common hepatic and common bile duct with removal of biliary sludge, moderate amount, but no significant retained stone was noted even on cholangiogram. RECOMMENDATIONS: 1. Surgical consult for cholecystectomy. 2. Protonix daily therapy, given his recent sphincterotomy. 3. The patient may have clears today. 4. Monitor labs, but improved. The patient may discontinue antibiotics on discharge. 5. No nonsteroidal anti-inflammatory drugs for 3 days. JOB# [id number] CHA/MENDEZ
--- NOTE | 2020-08-25 13:13 | Post Anesthesia Evaluation ---
- Post Anesthesia Evaluation Patient Participated: Yes Airway Patent: Yes Stable Respiratory Function: Yes Nausea/Vomiting: No Temp > 96.8F: Yes Pain Manageable: Yes Adequeate Hydration: Yes Anesthesia Complications: No Block Receding Appropriately: Not Applicable Patient on Ventilator: No
--- NOTE | 2020-08-25 14:03 | Progress Note ---
Assessment and Plan Assessment and plan: 34 YO male with no PMH presents to ED for evaluation. Patient states that he had experienced abdominal pain over the past 12 hours with persistently worsening symptoms over the past 2 hours. Patient states that pain is 10/10, constant, without exacerbating or alleviating factors, nonradiating, localized to the upper abdomen, associated with nausea, associated with multiple episodes of vomiting. EMS notified and upon arrival the patient was found to be in distress and subsequently transported to [facility] for further care and evaluation of the aforementioned symptoms. Acute pancreatitis Common bile duct dilatation status post ERCP with biliary sphincterotomy and balloon sweep of CBD Abdominal pain Intractable nausea vomiting secondary to 1 Transaminitis secondary to 1 Hypokalemia now resolved Plan Surgical consult per recommendation from GI Continue Protonix and pain control Antibiotics empiric Advised no NSAIDs for 3 days. Discharge based on surgical evaluation DVT and GI prophylaxis History Interval history: Patient seen and examined resting comfortably still with mild 3/10 pain in the abdomen. Status post endoscopy today. Admitted with pancreatitis Hospitalist Physical - Physical exam Narrative exam: VITAL SIGNS: Reviewed. GENERAL: The patient appears normally developed, uncomfortable secondary to pain vital signs as documented. HEAD: No signs of head trauma. EYES: Pupils are equal. Extraocular motions intact. EARS: Hearing grossly intact. MOUTH: Oropharynx is normal. NECK: No adenopathy, no JVD. CHEST: Chest with clear breath sounds bilaterally. No wheezes, rales, or rhonchi. CARDIAC: Regular rate and rhythm. S1 and S2, without murmurs, gallops, or rubs. VASCULAR: No Edema. Peripheral pulses normal and equal in all extremities. ABDOMEN: Soft, tender to touch and non distended. No rebound or guarding, and no masses palpated. Bowel Sounds normal. MUSCULOSKELETAL: Good range of motion of all major joints. Extremities without clubbing, cyanosis or edema. NEUROLOGIC EXAM: Alert and oriented x 3 No focal sensory or strength deficits. Speech normal. Follows commands. PSYCHIATRIC: Mood normal. SKIN: detail exam as documented in skin assessment - Constitutional Vitals: Temp Pulse Resp BP Pulse Ox 98.2 F 104 H 19 129/99 94 08/25/20 12:25 08/25/20 12:55 08/25/20 12:55 08/25/20 12:55 08/25/20 12:55 General appearance: Present: mild distress HEART Score - HEART Score Troponin: Troponin T < 0.010 ng/mL (0.00-0.029) 08/23/20 18:02 Results - Labs CBC & Chem 7: 08/24/20 04:23 08/24/20 04:23 Labs: Laboratory Last Values WBC 15.2 K/mm3 (4.5-11.0) H 08/24/20 04:23 RBC 5.57 M/mm3 (3.65-5.03) H 08/24/20 04:23 Hgb 17.1 gm/dl (11.8-15.2) H 08/24/20 04:23 Hct 49.0 % (35.5-45.6) H 08/24/20 04:23 MCV 88 fl (84-94) 08/24/20 04:23 MCH 31 pg (28-32) 08/24/20 04:23 MCHC 35 % (32-34) H 08/24/20 04:23 RDW 13.1 % (13.2-15.2) L 08/24/20 04:23 Plt Count 270 K/mm3 (140-440) 08/24/20 04:23 Lymph % (Auto) Lithographic Photographer 08/23/20 18:02 Clinch % (Auto) Lithographic Photographer 08/23/20 18:02 Eos % (Auto) Lithographic Photographer 08/23/20 18:02 Baso % (Auto) Lithographic Photographer 08/23/20 18:02 Lymph # (Auto) Lithographic Photographer 08/23/20 18:02 Clinch # (Auto) Lithographic Photographer 08/23/20 18:02 Eos # (Auto) Lithographic Photographer 08/23/20 18:02 Baso # (Auto) Lithographic Photographer 08/23/20 18:02 Add Manual Diff Complete 08/24/20 04:23 Total Counted 100 08/24/20 04:23 Seg Neutrophils % Lithographic Photographer 08/24/20 04:23 Seg Neuts % (Manual) 91.0 % (40.0-70.0) H 08/24/20 04:23 Band Neutrophils % 0 % 08/24/20 04:23 Lymphocytes % (Manual) 4.0 % (13.4-35.0) L 08/24/20 04:23 Reactive Lymphs % (Man) 0 % 08/24/20 04:23 Monocytes % (Manual) 5.0 % (0.0-7.3) 08/24/20 04:23 Eosinophils % (Manual) 0 % (0.0-4.3) 08/24/20 04:23 Basophils % (Manual) 0 % (0.0-1.8) 08/24/20 04:23 Metamyelocytes % 0 % 08/24/20 04:23 Myelocytes % 0 % 08/24/20 04:23 Promyelocytes % 0 % 08/24/20 04:23 Blast Cells % 0 % 08/24/20 04:23 Nucleated RBC % Not Reportable 08/24/20 04:23 Seg Neutrophils # Lithographic Photographer 08/23/20 18:02 Seg Neutrophils # Man 13.8 K/mm3 (1.8-7.7) H 08/24/20 04:23 Band Neutrophils # 0.0 K/mm3 08/24/20 04:23 Lymphocytes # (Manual) 0.6 K/mm3 (1.2-5.4) L 08/24/20 04:23 Abs React Lymphs (Man) 0.0 K/mm3 08/24/20 04:23 Monocytes # (Manual) 0.8 K/mm3 (0.0-0.8) 08/24/20 04:23 Eosinophils # (Manual) 0.0 K/mm3 (0.0-0.4) 08/24/20 04:23 Basophils # (Manual) 0.0 K/mm3 (0.0-0.1) 08/24/20 04:23 Metamyelocytes # 0.0 K/mm3 08/24/20 04:23 Myelocytes # 0.0 K/mm3 08/24/20 04:23 Promyelocytes # 0.0 K/mm3 08/24/20 04:23 Blast Cells # 0.0 K/mm3 08/24/20 04:23 WBC Morphology Not Reportable 08/24/20 04:23 Hypersegmented Neuts Not Reportable 08/24/20 04:23 Hyposegmented Neuts Not Reportable 08/24/20 04:23 Hypogranular Neuts Not Reportable 08/24/20 04:23 Smudge Cells Not Reportable 08/24/20 04:23 Toxic Granulation Not Reportable 08/24/20 04:23 Toxic Vacuolation Not Reportable 08/24/20 04:23 Dohle Bodies Not Reportable 08/24/20 04:23 Pelger-Huet Anomaly Not Reportable 08/24/20 04:23 Giovana Rods Not Reportable 08/24/20 04:23 Platelet Estimate Consistent w auto 08/24/20 04:23 Clumped Platelets Not Reportable 08/24/20 04:23 Plt Clumps, EDTA Not Reportable 08/24/20 04:23 Large Platelets Not Reportable 08/24/20 04:23 Giant Platelets Not Reportable 08/24/20 04:23 Platelet Satelliting Not Reportable 08/24/20 04:23 Plt Morphology Comment Not Reportable 08/24/20 04:23 RBC Morphology Not Reportable 08/24/20 04:23 Dimorphic RBCs Not Reportable 08/24/20 04:23 Polychromasia Not Reportable 08/24/20 04:23 Hypochromasia Not Reportable 08/24/20 04:23 Poikilocytosis Not Reportable 08/24/20 04:23 Anisocytosis Not Reportable 08/24/20 04:23 Microcytosis Not Reportable 08/24/20 04:23 Macrocytosis Not Reportable 08/24/20 04:23 Spherocytes Not Reportable 08/24/20 04:23 Pappenheimer Bodies Not Reportable 08/24/20 04:23 Sickle Cells Not Reportable 08/24/20 04:23 Target Cells Not Reportable 08/24/20 04:23 Tear Drop Cells Not Reportable 08/24/20 04:23 Ovalocytes Not Reportable 08/24/20 04:23 Helmet Cells Not Reportable 08/24/20 04:23 Jones-Elfers Bodies Not Reportable 08/24/20 04:23 [place] Rings Not Reportable 08/24/20 04:23 [place] Cells Not Reportable 08/24/20 04:23 Bite Cells Not Reportable 08/24/20 04:23 Crenated Cell Not Reportable 08/24/20 04:23 Elliptocytes Not Reportable 08/24/20 04:23 Acanthocytes (Spur) Not Reportable 08/24/20 04:23 Rouleaux Not Reportable 08/24/20 04:23 Hemoglobin C Crystals Not Reportable 08/24/20 04:23 Schistocytes Not Reportable 08/24/20 04:23 Malaria parasites Not Reportable 08/24/20 04:23 Fletcher Bodies Not Reportable 08/24/20 04:23 Hem Pathologist Commnt No 08/24/20 04:23 PT 13.3 Sec. (12.2-14.9) 08/23/20 18:02 INR 0.99 (0.87-1.13) 08/23/20 18:02 APTT 25.8 Sec. (24.2-36.6) 08/23/20 18:02 Sodium 141 mmol/L (137-145) 08/24/20 04:23 Potassium 3.7 mmol/L (3.6-5.0) 08/24/20 04:23 Chloride 106.8 mmol/L (98-107) 08/24/20 04:23 Carbon Dioxide 23 mmol/L (22-30) 08/24/20 04:23 Anion Gap 15 mmol/L 08/24/20 04:23 BUN 9 mg/dL (9-20) 08/24/20 04:23 Creatinine 0.7 mg/dL (0.8-1.3) L 08/24/20 04:23 Estimated GFR > 60 ml/min 08/24/20 04:23 BUN/Creatinine Ratio 13 % 08/24/20 04:23 Glucose 203 mg/dL (75-100) H 08/24/20 04:23 Calcium 8.8 mg/dL (8.4-10.2) 08/24/20 04:23 Total Bilirubin 1.10 mg/dL (0.1-1.2) 08/24/20 04:23 Direct Bilirubin 0.9 mg/dL (0-0.2) H 08/23/20 18:02 Indirect Bilirubin 0.7 mg/dL 08/23/20 18:02 AST 51 units/L (5-40) H 08/24/20 04:23 ALT 127 units/L (7-56) H 08/24/20 04:23 Alkaline Phosphatase 106 units/L (35-129) 08/24/20 04:23 Lactate Dehydrogenase 308 units/L (91-180) H 08/23/20 Unknown Troponin T < 0.010 ng/mL (0.00-0.029) 08/23/20 18:02 Total Protein 7.3 g/dL (6.3-8.2) 08/24/20 04:23 Albumin 4.4 g/dL (3.9-5) 08/24/20 04:23 Albumin/Globulin Ratio 1.5 % 08/24/20 04:23 Lipase 875 units/L (13-60) H 08/24/20 04:23 Crow/IV: Voiding Method Toilet IV Catheter Type [Right INT / Saline Lock Antecubital] Active Medications - Current Medications Current Medications: Generic Name Dose Route Start Last Admin Trade Name Freq PRN Reason Stop Dose Admin Acetaminophen 650 mg 08/23/20 20:41 Tylenol PO Q4H PRN Pain MILD(1-3)/Fever >100.5/MANTILLA Albuterol 2.5 mg 08/23/20 20:41 Proventil IH Q4HRT PRN Shortness Of Breath Hydromorphone HCl 0.5 mg 08/23/20 20:41 08/24/20 14:14 Dilaudid IV 0.5 mg Q3H PRN Administration Pain , Severe (7-10) Sodium Chloride 1,000 mls @ 125 mls/hr 08/23/20 20:45 08/25/20 09:22 Nacl 0.9% 1000 Ml IV 125 mls/hr DIRECT RENE Administration Morphine Sulfate 2 mg 08/23/20 20:41 08/23/20 23:29 Morphine IV 2 mg Q4H PRN Administration Pain, Moderate (4-6) Ondansetron HCl 4 mg 08/23/20 20:41 Zofran IV Q8H PRN Nausea And Vomiting Pantoprazole Sodium 40 mg 08/25/20 13:00 Protonix PO QDAC RENE Promethazine HCl 12.5 mg 08/23/20 23:14 08/23/20 23:29 Phenergan CA 12.5 mg Q6H PRN Administration Nausea And Vomiting Sodium Chloride 10 ml 08/23/20 22:00 08/24/20 23:56 Sodium Chloride Flush Syringe 10 Ml IV Not Given BID RENE Sodium Chloride 10 ml 08/23/20 20:41 Sodium Chloride Flush Syringe 10 Ml IV PRN PRN LINE FLUSH
--- NOTE | 2020-08-25 15:22 | Consultation ---
History of Present Illness Consult date: 08/25/20 Reason for consult: gallstones - History of present illness History of present illness: 84-year-old male with no past medical history presents to the emergency room with epigastric abdominal pain. Patient states he had pain similar to this approximately 2 months ago and states it was checked out but no specific diagnosis made. This improved on its own however started again suddenly on the day he presented to the ER. He denies nausea or vomiting. He states his pain has been constant. It does not radiate. He denies fevers or chills. No sick contacts. He was found to have an elevated lipase, LFTs, white blood cell count , bilirubin. Work-up in the emergency room included a CT scan which showed a small stone of the distal common bile duct. MRCP confirmed this finding. The patient underwent an ERCP today with sphincterotomy and was found to have sludge in the common bile duct Patient denies alcohol use. Past History Past Medical History: No medical history Past Surgical History: No surgical history Social history: single. denies: smoking, alcohol abuse Family history: other (Gallstones, mother) Medications and Allergies Allergies Allergy/AdvReac Type Severity Reaction Status Date / Time No Known Allergies Allergy Verified 08/23/20 17:21 Active Meds: Active Medications Acetaminophen (Tylenol) 650 mg PO Q4H PRN PRN Reason: Pain MILD(1-3)/Fever >100.5/MANTILLA Albuterol (Proventil) 2.5 mg IH Q4HRT PRN PRN Reason: Shortness Of Breath Hydromorphone HCl (Dilaudid) 0.5 mg IV Q3H PRN PRN Reason: Pain , Severe (7-10) Last Admin: 08/24/20 14:14 Dose: 0.5 mg Documented by: Sodium Chloride (Nacl 0.9% 1000 Ml) 1,000 mls @ 125 mls/hr IV DIRECT RENE Last Admin: 08/25/20 09:22 Dose: 125 mls/hr Documented by: Morphine Sulfate (Morphine) 2 mg IV Q4H PRN PRN Reason: Pain, Moderate (4-6) Last Admin: 08/23/20 23:29 Dose: 2 mg Documented by: Ondansetron HCl (Zofran) 4 mg IV Q8H PRN PRN Reason: Nausea And Vomiting Pantoprazole Sodium (Protonix) 40 mg PO QDAC RENE Promethazine HCl (Phenergan) 12.5 mg TN Q6H PRN PRN Reason: Nausea And Vomiting Last Admin: 08/23/20 23:29 Dose: 12.5 mg Documented by: Sodium Chloride (Sodium Chloride Flush Syringe 10 Ml) 10 ml IV BID RENE Last Admin: 08/24/20 23:56 Dose: Not Given Documented by: Sodium Chloride (Sodium Chloride Flush Syringe 10 Ml) 10 ml IV PRN PRN PRN Reason: LINE FLUSH Review of Systems All systems: negative (10 point ROS performed and negative except for that listed in HPI) Exam Vital Signs Temp Pulse Resp BP Pulse Ox 97.5 F L 65 18 108/67 95 08/23/20 17:24 08/23/20 17:24 08/23/20 17:24 08/23/20 17:24 08/23/20 17:24 Narrative exam: Gen.: Awake, alert, oriented 3. No apparent distress ENT: Trachea midline. No lymphadenopathy. No scleral icterus or conjunctival pallor CV: S1, S2 present Respiratory: No audible wheezes Abdomen: Soft, nondistended, epigastric tenderness to palpation. No rebound, rigidity, guarding Extremities: No clubbing, cyanosis, edema Results - Labs 08/24/20 04:23 08/24/20 04:23 - Imaging CT scan - abdomen: report reviewed, image reviewed CT scan - pelvis: report reviewed, image reviewed Additional studies: MRCP report Assessment and Plan 34-year-old male with 1. gallstone pancreatitis 2. Cholelithiasis without cholecystitis - Status post ERCP with sphincterotomy 08/25/2020 Plan: 1. CLD, NPO p MN tonight 2. repeat CMP, lipase in am 3. prn pain control 4. Covid testing ordered 5. abx per 1' team 6. Discussed pathology of GS pancreatitis with patient using director sports line. Explained that cholecystectomy is recommended for these cases. The risks, benefits, alternatives to cholecystectomy were discussed with patient questions answered. Consent obtained for laparoscopic, possible open cholecystectomy, possible cholangiogram. Patient will be added to the OR schedule for tomorrow afternoon, pending Covid testing. Thank you for this consultation. Please call with any questions or concerns. Evaluation and treatment of this patient was during the time of the national and state emergency arising from COVID19 coronavirus pandemic. Treatment and procedures performed meet the current and available best practice and guidelines for patient during the COVID pandemic.
[2020-08-25] MEDS: PANTOPRAZOLE 40 MG TAB PO SCH (15:34)
--- NOTE | 2020-08-25 15:42 | Fluoroscopy Report ---
INTRAOPERATIVE FLUOROSCOPY: ERCP INDICATION / CLINICAL INFORMATION: gallstones. TECHNIQUE: Intraoperative spot images were obtained during the procedure. FINDINGS: Retrograde injection of the common bile duct was performed. The balloon was used to sweep the common bile duct. At the end of procedure, the common bile duct demonstrates no filling defects. Fluoroscopy Time: 1 minute 25 seconds. Fluoroscopy Images: 15. Signer Name: Td Herzog MD Signed: 08/25/2020 3:38 PM Workstation Name: [id number]
[2020-08-25] MEDS: MORPHINE 2 MG/1 ML INJ IV PRN ×2 (15:58→21:27)
[2020-08-26] MEDS: SODIUM CHLORIDE 0.9% 1000 ML 1,000 ML IV SCH ×4 (00:59→22:51)
[2020-08-26 06:14] LABS: Hematocrit 39.7 % (35.5-45.6); Mean Corpuscular HGB Conc 35 % (32-34); Mean Corpuscular Volume 89 fl (84-94); Platelet Count 201 K/mm3 (140-440); Red Blood Count 4.48 M/mm3 (3.65-5.03); Red Cell Distribution Width 13.1 % (13.2-15.2)
[2020-08-26 06:36] LABS: Alanine Aminotransferase 57 units/L (7-56); Albumin 3.4 g/dL (3.9-5); Blood Urea Nitrogen 8 mg/dL (9-20); Calcium 7.7 mg/dL (8.4-10.2); Hemolysis Index 2
[2020-08-26 06:38] LABS: BUN/Creatinine Ratio 16
[2020-08-26] MEDS: MORPHINE 2 MG/1 ML INJ IV PRN (08:12)
[2020-08-26] MEDS: POTASSIUM CHLORIDE 10 MEQ 10 MEQ/100 ML BAG IV SCH ×4 (08:14→12:00)
[2020-08-26] MEDS: PANTOPRAZOLE 40 MG TAB PO SCH (08:14)
--- NOTE | 2020-08-26 11:10 | Gastroenterology Progress Note ---
Assessment and Plan - Patient Problems (1) Gallstone pancreatitis Current Visit: Yes Status: Acute Plan to address problem: - ERCP 08/25 with removal of sludge, and improvement in all LFTs except bili. - CCY today. - Given fever and elevated WBC will probably need to continue abx for a few days, but will decide before d/c tomorrow (would keep tonight even if surgery goes well, on IV abx). Subjective Date of service: 08/26/20 Principal diagnosis: Gallstones Interval history: The patient denies N/V/abdominal pain, his only c/o is of hiccups. He was febri le overnight, and WBC remains elevated. Objective - Constitutional Vitals: Temp Pulse Resp BP Pulse Ox 99.5 F 92 H 18 123/84 94 08/26/20 03:58 08/26/20 03:58 08/26/20 03:58 08/26/20 03:58 08/26/20 09:02 General appearance: no acute distress - Respiratory Respiratory effort: normal Respiratory: bilateral: CTA - Cardiovascular Rhythm: regular Heart Sounds: Present: S1 & S2 - Gastrointestinal General gastrointestinal: Present: soft, non-tender, non-distended - Labs CBC & Chem 7: 08/26/20 05:46 08/26/20 05:46 Labs: Laboratory Results - last 24 hr 08/26/20 08/26/20 05:46 05:46 WBC 15.9 H RBC 4.48 Hgb 14.0 D Hct 39.7 D MCV 89 MCH 31 MCHC 35 H RDW 13.1 L Plt Count 201 Sodium 139 Potassium 2.8 L* D Chloride 102.6 Carbon Dioxide 29 Anion Gap 10 BUN 8 L Creatinine 0.5 L Estimated GFR > 60 BUN/Creatinine Ratio 16 Glucose 125 H Calcium 7.7 L Total Bilirubin 1.60 H AST 17 ALT 57 H Alkaline Phosphatase 94 Total Protein 6.2 L Albumin 3.4 L Albumin/Globulin Ratio 1.2
--- NOTE | 2020-08-26 12:41 | Progress Note ---
Assessment and Plan Assessment and plan: 34 YO male with no PMH presents to ED for evaluation. Patient states that he had experienced abdominal pain over the past 12 hours with persistently worsening symptoms over the past 2 hours. Patient states that pain is 10/10, constant, without exacerbating or alleviating factors, nonradiating, localized to the upper abdomen, associated with nausea, associated with multiple episodes of vomiting. EMS notified and upon arrival the patient was found to be in distress and subsequently transported to [facility] for further care and evaluation of the aforementioned symptoms. Acute pancreatitis Sepsis secondary to Pancreatitis Common bile duct dilatation status post ERCP with biliary sphincterotomy and balloon sweep of CBD Abdominal pain Intractable nausea vomiting secondary to 1 Transaminitis secondary to 1 Hypokalemia now resolved Plan Surgical consult per recommendation from GI Surgery today Monitor Cultures Monitor inhouse on IV abx till afebril x 24 hrs. Replace K Continue Protonix and pain control Antibiotics empiric Advised no NSAIDs for 3 days. Discussed plan of care with patient DVT and GI prophylaxis History Interval history: Patient seen and examined resting comfortably, had some fever yesterday and now on antibiotics, for surgery today Hospitalist Physical - Physical exam Narrative exam: VITAL SIGNS: Reviewed. GENERAL: The patient appears normally developed, uncomfortable secondary to pain vital signs as documented. HEAD: No signs of head trauma. EYES: Pupils are equal. Extraocular motions intact. EARS: Hearing grossly intact. MOUTH: Oropharynx is normal. NECK: No adenopathy, no JVD. CHEST: Chest with clear breath sounds bilaterally. No wheezes, rales, or rhonchi. CARDIAC: Regular rate and rhythm. S1 and S2, without murmurs, gallops, or rubs. VASCULAR: No Edema. Peripheral pulses normal and equal in all extremities. ABDOMEN: Soft, tender to touch and non distended. No rebound or guarding, and no masses palpated. Bowel Sounds normal. MUSCULOSKELETAL: Good range of motion of all major joints. Extremities without clubbing, cyanosis or edema. NEUROLOGIC EXAM: Alert and oriented x 3 No focal sensory or strength deficits. Speech normal. Follows commands. PSYCHIATRIC: Mood normal. SKIN: detail exam as documented in skin assessment - Constitutional Vitals: Temp Pulse Resp BP Pulse Ox 99.5 F 92 H 18 123/84 94 08/26/20 03:58 08/26/20 03:58 08/26/20 03:58 08/26/20 03:58 08/26/20 09:02 General appearance: Present: mild distress HEART Score - HEART Score Troponin: Troponin T < 0.010 ng/mL (0.00-0.029) 08/23/20 18:02 Results - Labs CBC & Chem 7: 08/26/20 05:46 08/26/20 05:46 Labs: Laboratory Last Values WBC 15.9 K/mm3 (4.5-11.0) H 08/26/20 05:46 RBC 4.48 M/mm3 (3.65-5.03) 08/26/20 05:46 Hgb 14.0 gm/dl (11.8-15.2) D 08/26/20 05:46 Hct 39.7 % (35.5-45.6) D 08/26/20 05:46 MCV 89 fl (84-94) 08/26/20 05:46 MCH 31 pg (28-32) 08/26/20 05:46 MCHC 35 % (32-34) H 08/26/20 05:46 RDW 13.1 % (13.2-15.2) L 08/26/20 05:46 Plt Count 201 K/mm3 (140-440) 08/26/20 05:46 Lymph % (Auto) Medical Assistant Per Diem 08/23/20 18:02 [place] % (Auto) Medical Assistant Per Diem 08/23/20 18:02 Eos % (Auto) Medical Assistant Per Diem 08/23/20 18:02 Baso % (Auto) Medical Assistant Per Diem 08/23/20 18:02 Lymph # (Auto) Medical Assistant Per Diem 08/23/20 18:02 [place] # (Auto) Medical Assistant Per Diem 08/23/20 18:02 Eos # (Auto) Medical Assistant Per Diem 08/23/20 18:02 Baso # (Auto) Medical Assistant Per Diem 08/23/20 18:02 Add Manual Diff Complete 08/24/20 04:23 Total Counted 100 08/24/20 04:23 Seg Neutrophils % Medical Assistant Per Diem 08/24/20 04:23 Seg Neuts % (Manual) 91.0 % (40.0-70.0) H 08/24/20 04:23 Band Neutrophils % 0 % 08/24/20 04:23 Lymphocytes % (Manual) 4.0 % (13.4-35.0) L 08/24/20 04:23 Reactive Lymphs % (Man) 0 % 08/24/20 04:23 Monocytes % (Manual) 5.0 % (0.0-7.3) 08/24/20 04:23 Eosinophils % (Manual) 0 % (0.0-4.3) 08/24/20 04:23 Basophils % (Manual) 0 % (0.0-1.8) 08/24/20 04:23 Metamyelocytes % 0 % 08/24/20 04:23 Myelocytes % 0 % 08/24/20 04:23 Promyelocytes % 0 % 08/24/20 04:23 Blast Cells % 0 % 08/24/20 04:23 Nucleated RBC % Not Reportable 08/24/20 04:23 Seg Neutrophils # Medical Assistant Per Diem 08/23/20 18:02 Seg Neutrophils # Man 13.8 K/mm3 (1.8-7.7) H 08/24/20 04:23 Band Neutrophils # 0.0 K/mm3 08/24/20 04:23 Lymphocytes # (Manual) 0.6 K/mm3 (1.2-5.4) L 08/24/20 04:23 Abs React Lymphs (Man) 0.0 K/mm3 08/24/20 04:23 Monocytes # (Manual) 0.8 K/mm3 (0.0-0.8) 08/24/20 04:23 Eosinophils # (Manual) 0.0 K/mm3 (0.0-0.4) 08/24/20 04:23 Basophils # (Manual) 0.0 K/mm3 (0.0-0.1) 08/24/20 04:23 Metamyelocytes # 0.0 K/mm3 08/24/20 04:23 Myelocytes # 0.0 K/mm3 08/24/20 04:23 Promyelocytes # 0.0 K/mm3 08/24/20 04:23 Blast Cells # 0.0 K/mm3 08/24/20 04:23 WBC Morphology Not Reportable 08/24/20 04:23 Hypersegmented Neuts Not Reportable 08/24/20 04:23 Hyposegmented Neuts Not Reportable 08/24/20 04:23 Hypogranular Neuts Not Reportable 08/24/20 04:23 Smudge Cells Not Reportable 08/24/20 04:23 Toxic Granulation Not Reportable 08/24/20 04:23 Toxic Vacuolation Not Reportable 08/24/20 04:23 Dohle Bodies Not Reportable 08/24/20 04:23 Pelger-Huet Anomaly Not Reportable 08/24/20 04:23 Giovana Rods Not Reportable 08/24/20 04:23 Platelet Estimate Consistent w auto 08/24/20 04:23 Clumped Platelets Not Reportable 08/24/20 04:23 Plt Clumps, EDTA Not Reportable 08/24/20 04:23 Large Platelets Not Reportable 08/24/20 04:23 Giant Platelets Not Reportable 08/24/20 04:23 Platelet Satelliting Not Reportable 08/24/20 04:23 Plt Morphology Comment Not Reportable 08/24/20 04:23 RBC Morphology Not Reportable 08/24/20 04:23 Dimorphic RBCs Not Reportable 08/24/20 04:23 Polychromasia Not Reportable 08/24/20 04:23 Hypochromasia Not Reportable 08/24/20 04:23 Poikilocytosis Not Reportable 08/24/20 04:23 Anisocytosis Not Reportable 08/24/20 04:23 Microcytosis Not Reportable 08/24/20 04:23 Macrocytosis Not Reportable 08/24/20 04:23 Spherocytes Not Reportable 08/24/20 04:23 Pappenheimer Bodies Not Reportable 08/24/20 04:23 Sickle Cells Not Reportable 08/24/20 04:23 Target Cells Not Reportable 08/24/20 04:23 Tear Drop Cells Not Reportable 08/24/20 04:23 Ovalocytes Not Reportable 08/24/20 04:23 Helmet Cells Not Reportable 08/24/20 04:23 [place] Bodies Not Reportable 08/24/20 04:23 [place] Rings Not Reportable 08/24/20 04:23 Sorin Cells Not Reportable 08/24/20 04:23 Bite Cells Not Reportable 08/24/20 04:23 Crenated Cell Not Reportable 08/24/20 04:23 Elliptocytes Not Reportable 08/24/20 04:23 Acanthocytes (Spur) Not Reportable 08/24/20 04:23 Rouleaux Not Reportable 08/24/20 04:23 Hemoglobin C Crystals Not Reportable 08/24/20 04:23 Schistocytes Not Reportable 08/24/20 04:23 Malaria parasites Not Reportable 08/24/20 04:23 Fletcher Bodies Not Reportable 08/24/20 04:23 Hem Pathologist Commnt No 08/24/20 04:23 PT 13.3 Sec. (12.2-14.9) 08/23/20 18:02 INR 0.99 (0.87-1.13) 08/23/20 18:02 APTT 25.8 Sec. (24.2-36.6) 08/23/20 18:02 Sodium 139 mmol/L (137-145) 08/26/20 05:46 Potassium 2.8 mmol/L (3.6-5.0) L* D 08/26/20 05:46 Chloride 102.6 mmol/L (98-107) 08/26/20 05:46 Carbon Dioxide 29 mmol/L (22-30) 08/26/20 05:46 Anion Gap 10 mmol/L 08/26/20 05:46 BUN 8 mg/dL (9-20) L 08/26/20 05:46 Creatinine 0.5 mg/dL (0.8-1.3) L 08/26/20 05:46 Estimated GFR > 60 ml/min 08/26/20 05:46 BUN/Creatinine Ratio 16 % 08/26/20 05:46 Glucose 125 mg/dL (75-100) H 08/26/20 05:46 Calcium 7.7 mg/dL (8.4-10.2) L 08/26/20 05:46 Total Bilirubin 1.60 mg/dL (0.1-1.2) H 08/26/20 05:46 Direct Bilirubin 0.9 mg/dL (0-0.2) H 08/23/20 18:02 Indirect Bilirubin 0.7 mg/dL 08/23/20 18:02 AST 17 units/L (5-40) 08/26/20 05:46 ALT 57 units/L (7-56) H 08/26/20 05:46 Alkaline Phosphatase 94 units/L (35-129) 08/26/20 05:46 Lactate Dehydrogenase 308 units/L (91-180) H 08/23/20 Unknown Troponin T < 0.010 ng/mL (0.00-0.029) 08/23/20 18:02 Total Protein 6.2 g/dL (6.3-8.2) L 08/26/20 05:46 Albumin 3.4 g/dL (3.9-5) L 08/26/20 05:46 Albumin/Globulin Ratio 1.2 % 08/26/20 05:46 Lipase 96 units/L (13-60) H 08/26/20 11:37 Crow/IV: Voiding Method Toilet IV Catheter Type [Right INT / Saline Lock Antecubital] Active Medications - Current Medications Current Medications: Generic Name Dose Route Start Last Admin Trade Name Freq PRN Reason Stop Dose Admin Acetaminophen 650 mg 08/23/20 20:41 08/25/20 21:19 Tylenol PO 650 mg Q4H PRN Administration Pain MILD(1-3)/Fever >100.5/MANTILLA Albuterol 2.5 mg 08/23/20 20:41 Proventil IH Q4HRT PRN Shortness Of Breath Hydromorphone HCl 0.5 mg 08/23/20 20:41 08/24/20 14:14 Dilaudid IV 0.5 mg Q3H PRN Administration Pain , Severe (7-10) Sodium Chloride 1,000 mls @ 125 mls/hr 08/23/20 20:45 08/26/20 08:14 Nacl 0.9% 1000 Ml IV 125 mls/hr DIRECT RENE Administration Potassium Chloride 10 meq in 100 mls @ 100 mls/hr 08/26/20 11:00 08/26/20 10:17 Kcl 10meq/100ml IV 08/26/20 12:59 100 mls/hr Q1H RENE Administration Piperacillin Sod/Tazobactam Sod 4.5 gm in 100 mls @ 200 mls/hr 08/26/20 12:00 Zosyn/Ns 4.5gm/100ml IV Q8HR RENE Protocol Morphine Sulfate 2 mg 08/23/20 20:41 08/26/20 08:12 Morphine IV 2 mg Q4H PRN Administration Pain, Moderate (4-6) Ondansetron HCl 4 mg 08/23/20 20:41 Zofran IV Q8H PRN Nausea And Vomiting Pantoprazole Sodium 40 mg 08/25/20 13:00 08/26/20 08:14 Protonix PO Not Given QDAC RENE Promethazine HCl 12.5 mg 08/23/20 23:14 08/23/20 23:29 Phenergan WA 12.5 mg Q6H PRN Administration Nausea And Vomiting Sodium Chloride 10 ml 08/23/20 22:00 08/26/20 10:18 Sodium Chloride Flush Syringe 10 Ml IV 10 ml BID RENE Administration Sodium Chloride 10 ml 08/23/20 20:41 Sodium Chloride Flush Syringe 10 Ml IV PRN PRN LINE FLUSH
[2020-08-26] MEDS: PIPERACIL/TAZOBACTA 4.5/NS 100 4.5 GM/100 ML VIAL IV SCH ×2 (14:23→22:50)
--- NOTE | 2020-08-26 14:24 | Anesthesia Day of Surgery ---
Anesthesia Day of Surgery - Day of Surgery Patient Examined: Yes Patient H&P Reviewed: Yes Patient is NPO: Yes
[2020-08-26] MEDS ORDERED: HYDROmorphone 1 MG/1 ML INJ IV PRN ×2 (14:25)
[2020-08-26] MEDS ORDERED: ONDANSETRON 4 MG/2 ML INJ IV PRN (14:25)
[2020-08-26] MEDS ORDERED: MIDAZOLAM 2 MG/2 ML INJ ONE (14:33)
[2020-08-26 14:37] LABS: Blood Urea Nitrogen 7 mg/dL (9-20); Calcium 7.9 mg/dL (8.4-10.2); Hemolysis Index 4
[2020-08-26 14:39] LABS: BUN/Creatinine Ratio 14
[2020-08-26] MEDS ORDERED: MIDAZOLAM 2 MG/2 ML INJ IV NR (14:39)
[2020-08-26] MEDS ORDERED: LIDOCAINE (1%) 10 MG/1 ML VIAL 20 ML MDV ONE (14:41)
[2020-08-26] MEDS ORDERED: BUPIVACAINE-EPINEPHRINE/PF 0.5%-1:200,000 (10 ML) VIAL INFILTRATI ONE (14:42)
[2020-08-26] MEDS ORDERED: BUPIVACAINE/PF (0.5%) 5 MG/1 ML 30 ML VIAL INFILTRATI ONE (14:43)
[2020-08-26] MEDS ORDERED: LIDOCAINE MPF (2%) 20 MG/1 ML VIAL 5 ML ONE (14:47)
[2020-08-26] MEDS ORDERED: NEOSTIGMINE 10MG/10 ML INJ MDV ONE (14:47)
[2020-08-26] MEDS ORDERED: fentaNYL 100 MCG/2 ML INJ ONE (14:47)
[2020-08-26] MEDS ORDERED: SUCCINYLCHOLINE CHLORIDE 200 MG/10 ML INJ MDV ONE (14:47)
[2020-08-26] MEDS ORDERED: ROCURONIUM 50 MG/5 ML INJ IV ONE (14:47)
[2020-08-26] MEDS ORDERED: PHENYLEPHRINE/NS 1,000 MCG/10 ML SYRINGE (OR USE) IV ONE (14:47)
[2020-08-26] MEDS ORDERED: dexAMETHasone 20 MG/5 ML VIAL ONE (14:47)
[2020-08-26] MEDS ORDERED: GLYCOPYRROLATE 0.4 MG/2 ML INJ ONE (14:47)
[2020-08-26] MEDS ORDERED: propofoL 200 MG/20 ML VIAL IV ONE (14:47)
[2020-08-26] MEDS ORDERED: ONDANSETRON 4 MG/2 ML INJ ONE (14:47)
[2020-08-26] MEDS ORDERED: HYDROmorphone 1 MG/1 ML INJ ONE (15:37)
[2020-08-26] MEDS ORDERED: SODIUM CHLORIDE 0.9% IRR 1,500 ML BOTTLE IR ONE (15:52)
[2020-08-26] MEDS ORDERED: BUPIVACAINE/PF (0.5%) 5 MG/1 ML 10 ML VIAL INFILTRATI ONE (15:53)
[2020-08-26] MEDS ORDERED: LIDOCAINE (1%) 10 MG/1 ML VIAL 20 ML MDV INFILTRATI ONE (15:53)
[2020-08-26] MEDS ORDERED: SODIUM CHLORIDE 0.9% IRRIG SOLN 3000 ML IR ONE (15:53)
[2020-08-26] MEDS ORDERED: LACTATED RINGERS 1,000 ML ONE (17:24)
--- NOTE | 2020-08-26 17:24 | Post Operative Note ---
Pre-op diagnosis: gallstone pancreatitis Post-op diagnosis: same Findings: Inflamed gallbladder with free intraperitoneal inflammatory fluid. Dilated cystic duct Procedure: laparoscopic cholecystectomy Anesthesia: JERAMY, local Surgeon: IGNACIO HARTLEY Grade Checker: BAILEE WOOD Estimated blood loss: minimal Pathology: list (gallbladder) Specimen disposition: to lab Condition: stable Disposition: PACU
[2020-08-26] MEDS ORDERED: oxyCODONE /ACETAMINOPHEN 5-325MG TAB PO PRN (17:25)
[2020-08-27 05:14] LABS: Basophils % (Auto) 0.1 % (0.0-1.8); Hematocrit 37.2 % (35.5-45.6); Hemoglobin 12.9 gm/dl (11.8-15.2); Lymphocytes # (Auto) 0.8 K/mm3 (1.2-5.4); Lymphocytes % (Auto) 5.9 % (13.4-35.0); Mean Corpuscular HGB Conc 35 % (32-34); Mean Corpuscular Volume 89 fl (84-94); Monocytes # (Auto) 0.5 K/mm3 (0.0-0.8); Platelet Count 213 K/mm3 (140-440)
[2020-08-27 05:29] LABS: Alanine Aminotransferase 49 units/L (7-56); Albumin 3.1 g/dL (3.9-5); Blood Urea Nitrogen 9 mg/dL (9-20); Calcium 8.1 mg/dL (8.4-10.2); Hemolysis Index 11
[2020-08-27 05:32] LABS: BUN/Creatinine Ratio 18
[2020-08-27] MEDS: PIPERACIL/TAZOBACTA 4.5/NS 100 4.5 GM/100 ML VIAL IV SCH (05:54)
[2020-08-27] MEDS: PANTOPRAZOLE 40 MG TAB PO SCH (07:30)
--- NOTE | 2020-08-27 08:13 | Discharge Summary ---
Providers - Providers Date of Admission: 08/23/20 20:41 Attending physician: VICKY GREEN MD 08/23/20 19:53 Consult to Physician [CONS] Stat Comment: Consulting Provider: KLAUDIA CASILLAS Physician Instructions: Reason For Exam: pancreatitis; CBD dilated 08/25/20 12:25 Consult to Physician [CONS] Routine Comment: Consulting Provider: IGNACIO HARTLEY Physician Instructions: Reason For Exam: gallstones Primary care physician: TECHNICAL ADMINISTRATIVE ASSISTANT Hospitalization Reason for admission: abdominal pain Condition: Stable Hospital course: 34 YO male with no PMH presents to ED for evaluation. Patient states that he had experienced abdominal pain over the past 12 hours with persistently worsening symptoms over the past 2 hours. Patient states that pain is 10/10, constant, without exacerbating or alleviating factors, nonradiating, localized to the upper abdomen, associated with nausea, associated with multiple episodes of vomiting. EMS notified and upon arrival the patient was found to be in distress and subsequently transported to [facility] for further care and evaluation of the aforementioned symptoms. Patient underwent lap cassidy Pre-op diagnosis: gallstone pancreatitis Post-op diagnosis: same Findings: Inflamed gallbladder with free intraperitoneal inflammatory fluid. Dilated cystic duct Procedure: laparoscopic cholecystectomy prior to the surgery underwent ERCP Gallstone pancreatitis Current Visit: Yes Status: Acute Plan to address problem: - ERCP 08/25 with removal of sludge, and improvement in all LFTs except bili. - CCY today. - Given fever and elevated WBC will probably need to continue abx for a few days, but will decide before d/c tomorrow (would keep tonight even if surgery goes well, on IV abx). I discussed with GI and patient will be discharged with Oral abx and Pain meds TO FOLLOW WITH Acute pancreatitis Sepsis secondary to Pancreatitis Common bile duct dilatation status post ERCP with biliary sphincterotomy and balloon sweep of CBD Abdominal pain Intractable nausea vomiting secondary to 1 Transaminitis secondary to 1 Hypokalemia now resolved Disposition: DC-01 TO HOME OR SELFCARE Time spent for discharge: 35 mins Core Measure Documentation - Palliative Care Palliative Care/ Comfort Measures: Not Applicable - Core Measures Any of the following diagnoses?: none Exam - Physical Exam Narrative exam: VITAL SIGNS: Reviewed. GENERAL: The patient appears normally developed, uncomfortable secondary to pain vital signs as documented. HEAD: No signs of head trauma. EYES: Pupils are equal. Extraocular motions intact. EARS: Hearing grossly intact. MOUTH: Oropharynx is normal. NECK: No adenopathy, no JVD. CHEST: Chest with clear breath sounds bilaterally. No wheezes, rales, or rhonchi. CARDIAC: Regular rate and rhythm. S1 and S2, without murmurs, gallops, or rubs. VASCULAR: No Edema. Peripheral pulses normal and equal in all extremities. ABDOMEN: Soft, tender to touch and non distended. No rebound or guarding, and no masses palpated. Bowel Sounds normal. MUSCULOSKELETAL: Good range of motion of all major joints. Extremities without clubbing, cyanosis or edema. NEUROLOGIC EXAM: Alert and oriented x 3 No focal sensory or strength deficits. Speech normal. Follows commands. PSYCHIATRIC: Mood normal. SKIN: detail exam as documented in skin assessment - Constitutional Vitals: Temp Pulse Resp BP Pulse Ox 98.9 F 74 18 118/79 96 08/27/20 04:03 08/27/20 04:03 08/27/20 04:03 08/27/20 04:03 08/27/20 04:03 Plan Activity: advance as tolerated, fall precautions Diet: low fat, advance as tolerated Special Instructions: record daily BP diary Follow up with: PRIMARY CAREMD [Primary Care Provider] - 7 Days SHAKEEL SHERWOOD MD [Staff Physician] - 7 Days IGNACIO HARTLEY DO [Staff Physician] - 7 Days Prescriptions: metroNIDAZOLE [Flagyl] 500 mg PO Q8HR #15 tablet levoFLOXacin [Levaquin TAB] 500 mg PO QDAY #5 tablet oxyCODONE /ACETAMINOPHEN [Percocet 5/325 mg] 1 tab PO Q6H PRN #14 tablet PRN Reason: Pain, Moderate (4-6) Pantoprazole [Protonix TAB] 40 mg PO QDAC #30 tablet
--- NOTE | 2020-08-27 09:33 | Operative Report ---
Operative Report Operative Report: Date: 08/26/20 17:23 Initialization Date: 08/26/20 17:23 Pre-op diagnosis: gallstone pancreatitis Post-op diagnosis: same Findings: Inflamed gallbladder with free intraperitoneal inflammatory fluid. Dilated cystic duct Procedure: laparoscopic cholecystectomy Anesthesia: JERAMY, local Surgeon: IGNACIO HARTLEY Senior Hydrogeologist: BAILEE WOOD Estimated blood loss: minimal Pathology: list (gallbladder) Specimen disposition: to lab Condition: stable Disposition: PACU HPI an indication: 34-year-old male who presented to the hospital with epigastric abdominal pain. He was found to have pancreatitis and further work- up revealed the source was gallstones. He was also found to have choledocholithiasis with elevated bilirubin, LFTs. Patient was admitted, kept n.p.o. and on aggressive IV fluid resuscitation. He underwent ERCP with sphincterotomy and sludge was found in the common bile duct. It was recommended that he undergo cholecystectomy prior to discharge. All risk, benefits, alternatives to surgery were discussed with patient questions answered. Consent obtained for lap cassidy, possible open, possible IOC. Procedure in detail: The patient was identified in the preoperative area and taken back to the operating room, placed on the operating room table in supine position. After anesthesia was induced, the abdomen was prepped and draped in usual sterile fashion and timeout was performed. Local anesthetic was infiltrated into all of the skin incision sites. Using a 11 blade a supraumbilical incision was made and through this a Veress needle was used to insufflate the abdomen. The position of the veress needle was confirmed with the saline drop test and the abdomen was then insufflated to 15 mmHg without incident. The veress needle was then removed and a 5 mm Optiview trocar placed under direct visualization. The abdomen was then inspected and there was no underlying injury to any of the abdominal contents. An additional 12 mm s ubxyphoid port, and 2, 5mm RUQ ports were then placed under direct visualization. The patient was then placed into reverse Trendelberg and tilted to the left. There was prominence of the retroperitoneum due to pancreatitis. The gallbladder was visualized and appeared inflamed. There was also a moderate amount of inflammatory free fluid in the abdomen. The gallbladder was grasped and retracted. I started by performing a dome down approach. The peritoneum was scored in the gallbladder very carefully dissected off the liver bed. This allowed for better retraction of the gallbladder cephalad and above the liver. Peritoneum overlying the neck of the gallbladder was scored and a meticulous dissection performed in order to identify the cystic duct and artery. The cystic artery was tortuous and draped over the neck of the gallbladder and inserted into the gallbladder on the lateral aspect. The cystic duct was dilated. The cystic duct and artery were carefully skeletonized and the cr itical view obtained. These were the only 2 structures seen entering the gallbladder. 2 clips were placed on the proximal aspect of the cystic artery and one distally and this was transected in between the clips using EndoShears. As the cystic duct was dilated, it was not able to be clipped. Therefore it was stapled at the insertion at the neck of the gallbladder using an [place] flex 45 mm white load stapler. Any additional adhesions to the gallbladder from the liver bed were taken down using electrocautery and the gallbladder placed into a Endo Catch bag. The gallbladder was then removed via the 12 mm port which did need to be extended slightly. The gallbladder contained 2 large stones. The liver bed and gallbladder fossa were then examined. There was no bleeding or bile leakage. The clips on the cystic artery were visualized and intact. The staple line on the cystic duct was also intact with no bleeding or bile leakage. Bleeding from the liver bed was minimal and controlled with electrocautery. Patient was placed in neutral position and the Morison's pouch and gallbladder fossa was irrigated until the irrigant returned clear. I evacuated as much of the ascitic fluid as possible. Diana powder was sprayed onto the liver bed to further ensure hemostasis. The 12 mm port fascia was closed with a figure of 8-0 Vicryl stitch. The remainder of the ports were removed and the abdomen desufflated. The skin incisions were once again infiltrated with local anesthetic and closed using 4-0 Monocryl subcuticular stitches and skin glue. At the end case all sponge, instrument, sharp counts were correct 2. The patient was awoken from anesthesia, extubated, taken to PACU in stable condition.
[2020-08-27] MEDS: SODIUM CHLORIDE 0.9% 1000 ML 1,000 ML IV SCH (10:21)
[2020-08-27 13:01] VITALS: BP 114/74
--- NOTE | 2020-08-27 13:55 | Event Note ---
Date: 08/27/20 Patient already discharged when I came to visit and being wheeled off floor. He has no complaints. States he feels well and has no pain. He is tolerating a diet. No n/v. Advised patient to call surgery clinic to make an appointment for 2 week follow up. Phone number and address shown to patient in discharge paperwork. Pt s/p lap cassidy, POD 1 LFTs and bilirubin normal Diet advanced as toleratedf
== END 2020-08-27 14:30 | disposition home or self-care (01) | DRG 853 ==
LOC: ED 17:00 → 3A 20:41
PROVIDERS: ADMIT Internal Medicine; ATTEND Internal Medicine
PROC: 0F798ZZ Dilation of Common Bile Duct, Via Natural or Artificial Opening Endoscopic (ICD-10-PCS; 2020-08-25)
PROC: BF131ZZ Fluoroscopy of Gallbladder and Bile Ducts using Low Osmolar Contrast (ICD-10-PCS; 2020-08-25)
PROC: 0FT44ZZ Resection of Gallbladder, Percutaneous Endoscopic Approach (ICD-10-PCS; principal; 2020-08-26)
DX: A41.9 Sepsis, unspecified organism (principal); K85.10 Biliary acute pancreatitis without necrosis or infection; K80.10 Calculus of gallbladder with chronic cholecystitis without obstruction; K83.8 Other specified diseases of biliary tract; Z20.828 Contact with and (suspected) exposure to other viral communicable diseases; E87.6 Hypokalemia; R74.01 Elevation of levels of liver transaminase levels
CPT/HCPCS: 36415; 74022; 74177; 74181; 74328; 80048; 80053; 80076; 83615; 83690; 84484; 85007; 85025; 85027; 85610; 85730; 88304; 93005; 96365; 96375; 96376; G0378; A4217; C1726; J0330; J1100; J1170; J2060; J2250; J2270; J2370; J2405; J2543; J2704; J2710; J3010; J3480; J7030; J7120; Q9967; U0003